=== PATIENT | female | born 1980 | race African-American/Black ===

== ENCOUNTER 2022-05-23 11:56 | Emergency (ER) | payer SELFPAY ==
[2022-05-23 13:55] LABS: Bilirubin Negative (Negative); Blood, Urine Trace (Negative); Clarity Hazy (Clear); Glucose, Urine (Dipstick) Negative (Negative); Ketone, Urine Negative (Negative); Leukocyte Small (Negative); Nitrite Positive (Negative); Protein, Urine (Dipstick) Negative (Neg-Trace); Specific Gravity, Urine 1.025 (1.005-1.030); pH, Urine 5.5 (5.0-9.0)
[2022-05-23 13:57] LABS: Bacteria/HPF 3+ HPF (None Seen); RBC/HPF 0-3 HPF (0-3); WBC/HPF Greater than 50 HPF (0-3)
[2022-05-23 14:07] LABS: Anion Gap 12 mmol/L (10-20); BUN (Urea Nitrogen) 7 mg/dL (7.0-18.7); Calc. Creatinine Clearance 0 mL/min (70-130); Calcium 9.2 mg/dL (7.8-10.44); Carbon Dioxide 25 mmol/L (22-29); Chloride 105 mmol/L (98-107); Estimated GFR 105; Glucose 95 mg/dL (70-105); Potassium 4.2 mmol/L (3.5-5.1); Sodium 138 mmol/L (136-145)
[2022-05-23 14:19] LABS: Hemoglobin 8.5 g/dL (12.0-16.0); Mean Corpuscular Hemoglobin 21.1 pg (27.0-31.0); Mean Corpuscular Volume 69.9 fL (78.0-98.0); Red Blood Cell (RBC) Count 4.03 mill/uL (4.20-5.40)
[2022-05-23 14:20] LABS: MDiff Complete? YES; Manual Diff?? YES; Mean Corpuscular HGB CONC 30.6 g/dL (32.0-36.0); Mean Platelet Volume 13.9 fL (7.4-10.4); Platelet Count 177 thou/uL (130-400)
[2022-05-23 14:21] LABS: Anisocytosis MARKED = >30 cells (100X) (0-5/hpf); Hypochromia SLIGHT = 6-15 cells (100X) (0-5/hpf); Lymphocytes 27 % (21-51); Microcytosis MODERATE=15-30 cells (100X) (0-5/hpf); Monocytes 2 % (0-10); Neutrophil 63 % (42-75); Poikilocytosis MODERATE=16-30 cells (100X) (0-5/hpf); Reactive Lymphocytes 8 % (0-10)
[2022-05-23 14:22] LABS: Large Platelets SLIGHT; Platelet Morphology Comment Appears Adequate; Polychromasia MARKED = >4 cells (100X) (0-2/hpf); Target Cells MODERATE= 6-15 cells (100X) (0-1/hpf)
[2022-05-23] MEDS ORDERED: Cephalexin 500 MG CAP ONE (14:56)
== END 2022-05-23 14:45 | disposition home or self-care (01) ==
LOC: MADERS 11:56
DX: N39.0 Urinary tract infection, site not specified (principal); D50.9 Iron deficiency anemia, unspecified; I10 Essential (primary) hypertension; F17.210 Nicotine dependence, cigarettes, uncomplicated
CPT/HCPCS: 36415; 80048; 81003; 81015; 85025; 99284